=== PATIENT | male | born 1985 | race Caucasian/White ===

== ENCOUNTER 2018-10-05 02:09 | Emergency (ER) | payer SELFPAY ==
[2018-10-05] MEDS ORDERED: methylPREDNISolone Sod Succ/PF 125 MG/2 ML VIAL ONE (02:30)
[2018-10-05] MEDS ORDERED: diphenhydrAMINE 25 MG CAP ONE (02:31)
== END 2018-10-05 02:51 | disposition home or self-care (01) ==
LOC: NAV ERS 02:09
DX: L50.0 Allergic urticaria (principal); Z87.891 Personal history of nicotine dependence
CPT/HCPCS: 96372; 99283; J2930; Q0163